=== PATIENT | male | born 1940 ===

== ENCOUNTER 2024-07-31 02:07 | Inpatient (IN) | payer OTHER ==
[~2024-07-31] VITALS: Ht 175.3 cm; Wt 86.2 kg
[2024-07-31] MEDS ORDERED: INSULIN REGULAR, HUMAN 1 UNIT/0.01 ML IV ONE ×3 (02:25→16:00)
[2024-07-31] MEDS ORDERED: SODIUM CHLORIDE 0.9% 1,000 ML IV ONE ×2 (02:30)
[2024-07-31 02:46] VITALS: BP 163/92
[2024-07-31 02:51] LABS: BASO # 0.1 10*3/uL (0.0-0.1); BASO % 0.5 % (0.0-1.0); EOS # 0.1 10*3/uL (0.0-0.4); EOS % 0.8 % (1.0-4.0); LYMPH # 1.6 10*3/uL (1.3-4.4); MEAN CELL VOLUME 91.9 fl (80.0-94.0); MEAN CORPUSCULAR HGB 29.5 pg (27.0-31.0); MEAN CORPUSCULAR HGB CONC 32.1 g/dl (33.0-37.0); MEAN PLATELET VOLUME 10.6 fl (9.6-12.3); MONO # 0.8 10*3/uL (0.1-1.0); MONO % 8.6 % (3.0-9.0); NEUT # 7.1 10*3/uL (2.3-7.9); NEUT % 73.6 % (47.0-73.0); PLATELET COUNT AUTOMATED 368 10*3/uL (130-400); RED BLOOD COUNT 3.59 10*6/uL (4.50-5.90); RED CELL DISTRI WIDTH 13.2 % (0-14.5); WHITE BLOOD COUNT 9.7 10*3/uL (4.8-10.8)
[2024-07-31] MEDS ORDERED: ENTRESTO 49 MG1 EACH PO (02:52)
[2024-07-31] MEDS ORDERED: FUROSEMIDE40 MG PO (02:52)
[2024-07-31] MEDS ORDERED: DULOXETINE HCL30 MG PO (02:52)
[2024-07-31] MEDS ORDERED: AMIODARONE HYD200 MG PO (02:52)
[2024-07-31] MEDS ORDERED: LEVOTHYROXINE50 MCG PO (02:53)
[2024-07-31] MEDS ORDERED: LANTUS100 UNIT/1 SC (02:54)
[2024-07-31] MEDS ORDERED: LANTUS SOL100 UNIT/1 SC (02:54)
[2024-07-31] MEDS ORDERED: HUMALOG100 UNIT/1 SC (02:54)
[2024-07-31] MEDS ORDERED: CARVEDILOL3.125 MG PO (02:55)
[2024-07-31 03:26] LABS: POTASSIUM 3.9 mmol/L (3.4-5.1)
[2024-07-31 04:42] LABS: BILIRUBIN Negative (Negative); BLOOD Negative (Negative); CLARITY Clear (Clear); COLOR Yellow (Yellow); GLUCOSE 3+ (Negative); KETONE Trace (Negative); LEUKO ESTERASE Negative (Negative); NITRITE Negative (Negative); PH 5.5 (4.5-8.0); SPECIFIC GRAVITY >= 1.030 (1.001-1.030); UROBILINOGEN 0.2 E.U./dl (0.0-1.0)
[2024-07-31 06:20] VITALS: BP 158/88
[2024-07-31] MEDS ORDERED: Insulin Glargine, Recombinan 1 UNIT/0.01 ML SC ONE (07:55)
[2024-07-31] MEDS ORDERED: FUROSEMIDE 40 MG TAB PO ONE (07:55)
[2024-07-31] MEDS ORDERED: INSULIN LISPRO 1 UNIT/0.01 ML SQ ONE (08:00)
[2024-07-31 09:19] VITALS: BP 143/74
[2024-07-31] MEDS ORDERED: CARVEDILOL 3.125 MG TAB PO SCH (10:00)
[2024-07-31] MEDS ORDERED: Amiodarone Hydrochloride 200 MG TAB PO SCH (10:00)
[2024-07-31] MEDS ORDERED: Acetaminophen/Hydrocodone 5 MG/325 MG TABLET PO PRN (15:45)
[2024-07-31] MEDS ORDERED: MORPHINE Sulfate 2 MG/ML SYR IV PRN (15:45)
[2024-07-31] MEDS ORDERED: Ondansetron Hydrochloride 4 MG/2 ML VIAL IV PRN (15:45)
[2024-07-31] MEDS ORDERED: Magnesium Hydroxide 30 ML UDC PO PRN (15:45)
[2024-07-31] MEDS ORDERED: ACETAMINOPHEN 325 MG TAB PO PRN (15:45)
[2024-07-31] MEDS ORDERED: BISACODYL 10 MG SUPP R PRN (15:45)
[2024-07-31] MEDS ORDERED: BISACODYL 5 MG TAB PO PRN (15:45)
[2024-07-31] MEDS ORDERED: INSULIN LISPRO 1 UNIT/0.01 ML IV ONE (15:55)
[2024-07-31] MEDS ORDERED: DEXTROSE 10 % IN WATER 250 ML IV PRN (16:10)
[2024-07-31] MEDS ORDERED: SODIUM CHLORIDE 0.9% 1,000 ML IV SCH (16:15)
[2024-07-31] MEDS ORDERED: INSULIN LISPRO 1 UNIT/0.01 ML SQ SCH (16:30)
[2024-07-31 17:05] LABS: ABG BASE EXCESS -0.5 mmol/L (-2.0-3.0); ABG O2 SATURATION 92.4 % (94.0-98.0); ARTERIAL BLOOD GAS PH 7.442 (7.350-7.450); ARTERIAL BLOOD GAS PO2 66.6 mmHg (83.0-108.0)
[2024-07-31 17:37] LABS: ALKALINE PHOSPHATASE 70 U/L (46-116); BUN 22 mg/dl (9-23); CHLORIDE 100 mmol/L (98-107); POTASSIUM 3.9 mmol/L (3.4-5.1); TOTAL PROTEIN 5.4 gm/dL (6.0-8.0)
[2024-07-31 17:39] LABS: SGPT/ALT < 7 U/L (5-49)
[2024-07-31 18:45] VITALS: BP 137/73
[2024-07-31 21:26] VITALS: BP 148/82
[2024-07-31] MEDS ORDERED: SACUBITRIL/VALSARTAN 49 MG-51 MG TABLET PO SCH (22:00)
[2024-08-01] VITALS: BP 156/81
[2024-08-01 05:39] LABS: FREE T4 1.15 ng/dl (0.89-1.76); POTASSIUM 3.1 mmol/L (3.4-5.1)
[2024-08-01] MEDS ORDERED: Levothyroxine Sodium 50 MCG TAB PO SCH (06:00)
[2024-08-01 06:15] LABS: BASO # 0.1 10*3/uL (0.0-0.1); BASO % 0.7 % (0.0-1.0); EOS # 0.4 10*3/uL (0.0-0.4); EOS % 4.8 % (1.0-4.0); HEMATOCRIT 30.9 % (42.0-52.0); LYMPH # 1.6 10*3/uL (1.3-4.4); LYMPH % 19.5 % (27.0-41.0); MEAN CORPUSCULAR HGB 29.5 pg (27.0-31.0); MONO # 0.8 10*3/uL (0.1-1.0); MONO % 9.3 % (3.0-9.0); NEUT # 5.5 10*3/uL (2.3-7.9); NEUT % 65.1 % (47.0-73.0); PLATELET COUNT AUTOMATED 275 10*3/uL (130-400); RED BLOOD COUNT 3.36 10*6/uL (4.50-5.90); RED CELL DISTRI WIDTH 13.2 % (0-14.5); WHITE BLOOD COUNT 8.4 10*3/uL (4.8-10.8)
[2024-08-01 06:54] LABS: VITAMIN D, 25-HYDROXY 27.1 ng/mL (30-100)
[2024-08-01] MEDS ORDERED: POTASSIUM CHLORIDE 20 MEQ TAB PO ONE (07:30)
[2024-08-01 08:00] VITALS: BP 122/71
[2024-08-01] MEDS ORDERED: Ceftriaxone Sodium 1 GM in SYRINGE INFUSION 10 ML IV SCH (08:00)
[2024-08-01] MEDS ORDERED: Cholecalciferol 2,000 UNIT TABLET (50 MCG) PO SCH (10:00)
[2024-08-01] MEDS ORDERED: Duloxetine Hydrochloride 30 MG CAP PO SCH (10:00)
[2024-08-01] MEDS ORDERED: Enoxaparin Sodium 40 MG/0.4 ML SYR SC SCH ×2 (10:00)
[2024-08-01] MEDS ORDERED: Enoxaparin Sodium 30 MG/0.3 ML SYR SC SCH (10:00)
[2024-08-01] MEDS ORDERED: Insulin Glargine, Recombinan 1 UNIT/0.01 ML SC SCH (11:45)
[2024-08-01 12:00] VITALS: BP 124/74
[2024-08-01 16:00] VITALS: BP 128/68
[2024-08-01 20:00] VITALS: BP 142/82
[2024-08-02] VITALS: BP 135/77
[2024-08-02 05:02] LABS: POTASSIUM 3.5 mmol/L (3.4-5.1)
[2024-08-02 06:23] LABS: BASO % 0.6 % (0.0-1.0); EOS # 0.4 10*3/uL (0.0-0.4); EOS % 5.1 % (1.0-4.0); HEMATOCRIT 31.6 % (42.0-52.0); LYMPH # 1.1 10*3/uL (1.3-4.4); LYMPH % 16.1 % (27.0-41.0); MEAN CELL VOLUME 92.1 fl (80.0-94.0); MEAN CORPUSCULAR HGB 29.7 pg (27.0-31.0); MEAN CORPUSCULAR HGB CONC 32.3 g/dl (33.0-37.0); MEAN PLATELET VOLUME 10.8 fl (9.6-12.3); MONO # 0.7 10*3/uL (0.1-1.0); MONO % 9.9 % (3.0-9.0); NEUT # 4.8 10*3/uL (2.3-7.9); NEUT % 67.5 % (47.0-73.0); PLATELET COUNT AUTOMATED 276 10*3/uL (130-400); RED BLOOD COUNT 3.43 10*6/uL (4.50-5.90); RED CELL DISTRI WIDTH 13.3 % (0-14.5); WHITE BLOOD COUNT 7.1 10*3/uL (4.8-10.8)
[2024-08-02 08:00] VITALS: BP 136/77
[2024-08-02] MEDS ORDERED: Doxycycline Hyclate 100 MG in SODIUM CHLORIDE 0.9% 250 ML IV SCH (10:00)
[2024-08-02 12:00] VITALS: BP 152/87
[2024-08-02 16:00] VITALS: BP 137/72
[2024-08-02 20:00] VITALS: BP 156/82
[2024-08-02] MEDS ORDERED: CARVEDILOL 6.25 MG TAB PO SCH (22:00)
[2024-08-02] MEDS ORDERED: Insulin Glargine, Recombinan 1 UNIT/0.01 ML SC SCH (22:00)
[2024-08-03] VITALS: BP 130/60
[2024-08-03 05:30] LABS: POTASSIUM 3.5 mmol/L (3.4-5.1)
[2024-08-03 06:06] LABS: BASO # 0.1 10*3/uL (0.0-0.1); EOS # 0.4 10*3/uL (0.0-0.4); EOS % 5.6 % (1.0-4.0); HEMATOCRIT 31.5 % (42.0-52.0); LYMPH # 1.1 10*3/uL (1.3-4.4); LYMPH % 17.8 % (27.0-41.0); MEAN CELL VOLUME 91.6 fl (80.0-94.0); MEAN CORPUSCULAR HGB 29.7 pg (27.0-31.0); MEAN CORPUSCULAR HGB CONC 32.4 g/dl (33.0-37.0); MEAN PLATELET VOLUME 11.6 fl (9.6-12.3); MONO # 0.8 10*3/uL (0.1-1.0); MONO % 12.2 % (3.0-9.0); NEUT # 3.9 10*3/uL (2.3-7.9); NEUT % 62.4 % (47.0-73.0); PLATELET COUNT AUTOMATED 217 10*3/uL (130-400); RED BLOOD COUNT 3.44 10*6/uL (4.50-5.90); RED CELL DISTRI WIDTH 13.5 % (0-14.5); WHITE BLOOD COUNT 6.3 10*3/uL (4.8-10.8)
[2024-08-03 08:00] VITALS: BP 166/82
[2024-08-03 12:00] VITALS: BP 149/79
[2024-08-03 16:00] VITALS: BP 119/61; BP 150/77
[2024-08-03 20:00] VITALS: BP 161/83
[2024-08-04] VITALS: BP 123/65
[2024-08-04 06:05] LABS: BASO % 0.6 % (0.0-1.0); EOS # 0.2 10*3/uL (0.0-0.4); EOS % 3.4 % (1.0-4.0); LYMPH # 1.3 10*3/uL (1.3-4.4); LYMPH % 19.3 % (27.0-41.0); MEAN CELL VOLUME 93.8 fl (80.0-94.0); MEAN CORPUSCULAR HGB 29.3 pg (27.0-31.0); MEAN CORPUSCULAR HGB CONC 31.2 g/dl (33.0-37.0); MEAN PLATELET VOLUME 10.5 fl (9.6-12.3); MONO # 0.8 10*3/uL (0.1-1.0); NEUT # 4.2 10*3/uL (2.3-7.9); NEUT % 64.2 % (47.0-73.0); PLATELET COUNT AUTOMATED 272 10*3/uL (130-400); RED BLOOD COUNT 3.52 10*6/uL (4.50-5.90); RED CELL DISTRI WIDTH 13.5 % (0-14.5); WHITE BLOOD COUNT 6.5 10*3/uL (4.8-10.8)
[2024-08-04 06:14] LABS: POTASSIUM 4.1 mmol/L (3.4-5.1)
[2024-08-04 08:00] VITALS: BP 155/68
[2024-08-04 12:00] VITALS: BP 135/63
[2024-08-04 16:00] VITALS: BP 169/73
[2024-08-04 20:00] VITALS: BP 132/73
[2024-08-05] VITALS: BP 152/83
[2024-08-05 06:19] LABS: BASO # 0.1 10*3/uL (0.0-0.1); BASO % 1.2 % (0.0-1.0); EOS # 0.2 10*3/uL (0.0-0.4); EOS % 2.5 % (1.0-4.0); HEMATOCRIT 31.5 % (42.0-52.0); LYMPH # 1.4 10*3/uL (1.3-4.4); LYMPH % 20.6 % (27.0-41.0); MEAN CELL VOLUME 91.8 fl (80.0-94.0); MEAN CORPUSCULAR HGB CONC 32.7 g/dl (33.0-37.0); MEAN PLATELET VOLUME 10.5 fl (9.6-12.3); MONO # 0.8 10*3/uL (0.1-1.0); MONO % 11.3 % (3.0-9.0); NEUT # 4.4 10*3/uL (2.3-7.9); NEUT % 63.8 % (47.0-73.0); PLATELET COUNT AUTOMATED 268 10*3/uL (130-400); RED BLOOD COUNT 3.43 10*6/uL (4.50-5.90); RED CELL DISTRI WIDTH 13.4 % (0-14.5); WHITE BLOOD COUNT 6.9 10*3/uL (4.8-10.8)
[2024-08-05 06:45] LABS: BUN 12 mg/dl (9-23); CHLORIDE 110 mmol/L (98-107); POTASSIUM 3.4 mmol/L (3.4-5.1)
[2024-08-05 08:00] VITALS: BP 147/82
[2024-08-05] MEDS ORDERED: Doxycycline Hyclate 100 MG VIAL IV ONE (08:13)
[2024-08-05] MEDS ORDERED: SODIUM CHLORIDE 0.9% 250 ML BAG IV ONE (08:13)
[2024-08-05 12:00] VITALS: BP 144/87
[2024-08-05 16:00] VITALS: BP 146/84
[2024-08-05 20:00] VITALS: BP 138/70
[2024-08-06] VITALS: BP 158/84
[2024-08-06 08:00] VITALS: BP 143/65
[2024-08-06 11:43] VITALS: BP 132/67
[2024-08-06 16:00] VITALS: BP 140/70
[2024-08-06 20:00] VITALS: BP 149/75
[2024-08-07] VITALS: BP 148/74
[2024-08-07 08:00] VITALS: BP 153/80
[2024-08-07 12:00] VITALS: BP 139/64
[2024-08-07 16:00] VITALS: BP 144/76
[2024-08-07 20:00] VITALS: BP 168/89
[2024-08-07] MEDS ORDERED: Ciprofloxacin Hydrochloride 250 MG TAB PO SCH (22:00)
[2024-08-08] VITALS: BP 159/65
[2024-08-08 05:53] LABS: POTASSIUM 4.1 mmol/L (3.4-5.1)
[2024-08-08 06:07] LABS: BASO # 0.1 10*3/uL (0.0-0.1); BASO % 0.6 % (0.0-1.0); EOS # 0.1 10*3/uL (0.0-0.4); EOS % 0.7 % (1.0-4.0); HEMATOCRIT 31.5 % (42.0-52.0); LYMPH # 1.7 10*3/uL (1.3-4.4); LYMPH % 16.7 % (27.0-41.0); MEAN CELL VOLUME 93.5 fl (80.0-94.0); MEAN CORPUSCULAR HGB 29.4 pg (27.0-31.0); MEAN CORPUSCULAR HGB CONC 31.4 g/dl (33.0-37.0); MEAN PLATELET VOLUME 10.8 fl (9.6-12.3); MONO # 0.8 10*3/uL (0.1-1.0); MONO % 8.1 % (3.0-9.0); NEUT # 7.6 10*3/uL (2.3-7.9); NEUT % 73.4 % (47.0-73.0); PLATELET COUNT AUTOMATED 342 10*3/uL (130-400); RED BLOOD COUNT 3.37 10*6/uL (4.50-5.90); RED CELL DISTRI WIDTH 13.5 % (0-14.5); WHITE BLOOD COUNT 10.3 10*3/uL (4.8-10.8)
[2024-08-08 08:00] VITALS: BP 142/88; BP 149/91
[2024-08-08 12:00] VITALS: BP 151/87
[2024-08-08 14:00] VITALS: BP 151/87
[2024-08-08 20:00] VITALS: BP 151/80
[2024-08-09] VITALS: BP 149/79
[2024-08-09 06:29] LABS: BASO # 0.1 10*3/uL (0.0-0.1); BASO % 0.8 % (0.0-1.0); EOS # 0.2 10*3/uL (0.0-0.4); EOS % 2.2 % (1.0-4.0); HEMATOCRIT 28.7 % (42.0-52.0); LYMPH # 1.7 10*3/uL (1.3-4.4); LYMPH % 23.1 % (27.0-41.0); MEAN CELL VOLUME 91.1 fl (80.0-94.0); MEAN CORPUSCULAR HGB 29.5 pg (27.0-31.0); MEAN CORPUSCULAR HGB CONC 32.4 g/dl (33.0-37.0); MEAN PLATELET VOLUME 10.6 fl (9.6-12.3); MONO # 0.7 10*3/uL (0.1-1.0); MONO % 9.3 % (3.0-9.0); NEUT # 4.8 10*3/uL (2.3-7.9); NEUT % 64.1 % (47.0-73.0); PLATELET COUNT AUTOMATED 288 10*3/uL (130-400); RED BLOOD COUNT 3.15 10*6/uL (4.50-5.90); RED CELL DISTRI WIDTH 13.5 % (0-14.5); WHITE BLOOD COUNT 7.4 10*3/uL (4.8-10.8)
[2024-08-09 08:00] VITALS: BP 123/52
[2024-08-09 12:00] VITALS: BP 124/56
[2024-08-09] MEDS ORDERED: VITAMIN D350 MCG PO (13:27)
[2024-08-09] MEDS ORDERED: CARVEDILOL6.25 MG PO (13:27)
[2024-08-09] MEDS ORDERED: LANTUS100 UNIT/1 SC (13:27)
[2024-08-09] MEDS ORDERED: CIPROFLOXACIN250 MG PO (13:27)
[2024-08-09 16:00] VITALS: BP 143/73
== END 2024-08-09 17:40 | DRG 637 ==
LOC: ED 02:07 → EDHOLD 15:05 → 4E 15:05 → EDHOLD 15:53 → 4E 19:26
PROVIDERS: Internal Medicine; Registered Nurse; Student in an Organized Health Care Education/Training Program; ADMIT Family Medicine; ATTEND Family Medicine
DX: E11.00 Type 2 diabetes mellitus with hyperosmolarity without nonketotic hyperglycemic-hyperosmolar coma (NKHHC) (principal); G93.41 Metabolic encephalopathy; N17.0 Acute kidney failure with tubular necrosis; N39.0 Urinary tract infection, site not specified; E44.0 Moderate protein-calorie malnutrition; F03.94 Unspecified dementia, unspecified severity, with anxiety; F03.93 Unspecified dementia, unspecified severity, with mood disturbance; B88.8 Other specified infestations; E55.9 Vitamin D deficiency, unspecified; I50.9 Heart failure, unspecified; E03.9 Hypothyroidism, unspecified; D64.9 Anemia, unspecified; B96.20 Unspecified Escherichia coli [E. coli] as the cause of diseases classified elsewhere; E87.6 Hypokalemia; Z79.01 Long term (current) use of anticoagulants; Z79.2 Long term (current) use of antibiotics; Z79.4 Long term (current) use of insulin; Z86.79 Personal history of other diseases of the circulatory system; Z68.28 Body mass index [BMI] 28.0-28.9, adult